=== PATIENT | female | born 1960 | race Caucasian/White ===

== ENCOUNTER 2017-05-05 08:33 | Day surgery (SDC) | payer OTHER ==
[~2017-05-05] VITALS: Ht 160 cm; Wt 87.1 kg
[~2017-05-05 08:33] MED LIST: ATENOLOL50 MG PO; CLONAZEPAM0.5 MG PO; HYDROCHLOROTHIA50 MG PO; MELATONIN5 M2 PO; PROBIOTIC & AC1 EACH PO; TRAZODONE HCL50 MG PO; VITAMIN D400 UNI2 PO; WELLBUTRIN SR150 MG PO
[2017-05-05] MEDS ORDERED: CRANBERRY500 M3 PO (08:50)
[2017-05-05] MEDS ORDERED: DAILY MULTIPLE1 EACH PO (08:52)
--- NOTE | 2017-05-05 09:50 | NUR ---
05/05/17 0950 Margaret Sam 0994-PATIENT ARRIVED TO PACU ON 3L NC O2 SAT 98% PATIENT AWAKE DENIES PAIN OR NAUSEA. DROWSY ABDOMEN ROUND AND SOFT. RR EVEN
--- NOTE | 2017-05-06 08:21 | OR ---
[facility] [address], [place] [address] Signed DATE OF OPERATION: 05/05/2017 SURGEON: Anabel Pena MD COLONOSCOPY REPORT PREOPERATIVE DIAGNOSES: 1. Father with history of colon cancer at age 58. 2. Change in bowel habits with increased urgency and frequency associated with some constipation, nausea, abdominal pain, and diarrhea. POSTOPERATIVE DIAGNOSES: 1. Eawdejc-em-xvjajnjq sigmoid diverticulosis. 2. Thrombosed right external hemorrhoid. 3. Jicbyxq-ws-gpxygoiv internal hemorrhoids. PROCEDURE: Colonoscopy without biopsy. ESTIMATED BLOOD LOSS: None. INDICATIONS: Anai is a 56-year-old female, who was asked to see me for a colonoscopy. She has been through a very rough year with her brother being diagnosed with pancreatic cancer at age 59. Also her father was diagnosed with colon cancer at age 58. She has never had a previous colonoscopy. However, she had a change in bowel habits last fall with lots of mucus, increased urgency, frequency, alternating constipation, diarrhea, and abdominal pain. She thinks it is getting a little better as year goes on. She was asked by her primary care provider to come and see me for a colonoscopy. She told me today that her has been through a colonoscopy with myself and so they are familiar with the process. In the office, I gave her a pamphlet on colonoscopy and we looked at that together along with the risks including, but not limited to gas bloating, crampy abdominal pain, bleeding, perforation, requiring surgery, and missed diagnosis. We also reviewed the written instructions for the bowel prep. We also had her take her usual dose of her clonazepam in the evening. She had expressed understanding and wished to proceed. PROCEDURE NOTE: Anai was taken into our endoscopy suite and placed in the left lateral decubitus Electronically Signed By: ANABEL PENA MD 05/06/17 0821 PATIENT NAME: ANAI VILLAFANA OPERATIVE REPORT DATE OF : 58 REPORT #: [id number] PHYSICIAN: ANABEL PENA MD PCP: SHAUNNA OSHEA REPORT IS CONFIDENTIAL AND NOT TO BE RELEASED WITHOUT AUTHORIZATION [facility] [address], [place] [address] Signed position. She was given divided doses of 6 mg of Versed and 150 mcg of fentanyl. A digital rectal exam was performed and she has a routine thrombosed external hemorrhoid in the right lateral position. Sphincter tone was fine. The adult colonoscope was then introduced and advanced all around into the cecum under direct visualization of camera. Her prep was good. The scope was then slowly withdrawn. We could easily see the appendiceal orifice, the [place] foot, and the ileocecal valve. We saw no pathology in the colon except for diverticula in the sigmoid colon. They were minimal to moderate in number, moderate in size and scattered about. Once in the rectum, the scope had been retroflexed and she did have just a little bit of internal hemorrhoid tissue as well. After this, the gas was suctioned out and the colonoscope removed. Anai tolerated the procedure quite well. RECOMMENDATIONS: Anai can return in 5 years for repeat colonoscopy. If she wants to have the thrombosed hemorrhoid excised, I am happy to help her in the office as well. Anabel Pena MD ALB/MODL /[id number] cc: MD Shaunna Tobar FNP Copies: ANABEL PENA MD, LISA R FNP ~ Electronically Signed By: ANABEL PENA MD 05/06/17 0821 PATIENT NAME: ANAI VILLAFANA OPERATIVE REPORT DATE OF : 58 REPORT #: [id number] PHYSICIAN: ANABEL PENA MD PCP: SHAUNNA OSHEA REPORT IS CONFIDENTIAL AND NOT TO BE RELEASED WITHOUT AUTHORIZATION
== END 2017-05-05 10:45 | disposition home or self-care (01) ==
LOC: OPS 08:33 → DS 08:33 → OPS 10:45
PROVIDERS: Colon & Rectal Surgery
PROC: 0DJD8ZZ Inspection of Lower Intestinal Tract, Via Natural or Artificial Opening Endoscopic (ICD-10-PCS; principal; 2017-05-05 08:15)
DX: K64.5 Perianal venous thrombosis (principal); K64.8 Other hemorrhoids; K57.30 Diverticulosis of large intestine without perforation or abscess without bleeding; K59.00 Constipation, unspecified; G47.00 Insomnia, unspecified; I10 Essential (primary) hypertension; F32.9 Major depressive disorder, single episode, unspecified; F41.9 Anxiety disorder, unspecified; Z80.0 Family history of malignant neoplasm of digestive organs; Z98.890 Other specified postprocedural states; Z79.899 Other long term (current) drug therapy
CPT/HCPCS: 99153; G0500; J2250; J3010; J7120

== ENCOUNTER 2024-01-16 13:29 | Emergency (ER) | payer OTHER ==
[~2024-01-16] VITALS: Ht 160 cm; Wt 102.5 kg
[~2024-01-16 13:29] MED LIST changes: +CRANBERRY500 M3 PO; +DAILY MULTIPLE1 EACH PO
[2024-01-16] MEDS ORDERED: TIAZAC120 MG PO ×2 (13:42)
[2024-01-16 13:44] LABS: BASOPHILS 0.8 % (0-2); HEMATOCRIT 43.3 % (35.0-50.0); HEMOGLOBIN 14.4 g/dL (12.0-18.0); LYMPHOCYTES 27.4 % (24-44); MCH 27.7 (27-36); MCHC 33.4 g/dl (30-36); MCV 82.9 fl (81-99); NEUTROPHILS 58.8 % (39-80); PLATELET COUNT 329 K/uL (140-440); RBC 5.22 M/ul (4.3-5.7); RDW 14.4 (10.5-15.0)
[2024-01-16] MEDS ORDERED: ASPIRIN 81 MG CHEW PO ONE (13:45)
[2024-01-16] MEDS ORDERED: HYZAAR 100-12.1 EACH PO (13:48)
[2024-01-16 14:04] LABS: ALBUMIN 3.8 g/dL (3.4-5.0); ALBUMIN/GLOBULIN RATIO 0.93 (1.1-2.4); ANION GAP 14.7 (7-21); BILIRUBIN, TOTAL 0.3 ng/dL (0.2-1.0); BUN/CREATININE RATIO 17.07 (6.0-28.6); CALCIUM 9.5 mg/dL (8.5-10.1); CREATININE, SERUM 0.82 mg/dL (0.55-1.02); POTASSIUM 3.7 mmol/L (3.5-5.1); PROTEIN, TOTAL 7.9 g/dL (6.4-8.2)
[2024-01-16 15:43] VITALS: BP 137/70
--- NOTE | 2024-01-17 22:53 | EKG ---
[facility] [address] [facility] [place] [address] Signed Normal sinus rhythm Minimal voltage criteria for LVH, may be normal variant ( R in aVL ) Borderline ECG No previous ECGs available Confirmed by Rema Lindsey MD () on 01/17/2024 10:53:41 PM Electronically Signed By: REMA LINDSEY MD 01/17/24 2253 PATIENT NAME: POOL VILLAFANA Electrocardiogram DATE OF : 58 PHYSICIAN: REMA LINDSEY MD REPORT #: [id number] REPORT IS CONFIDENTIAL AND NOT TO BE RELEASED WITHOUT AUTHORIZATION
== END 2024-01-16 15:45 | disposition home or self-care (01) ==
LOC: ED 13:29
PROVIDERS: Emergency Medicine
DX: R07.89 Other chest pain (principal); I10 Essential (primary) hypertension; Z91.09 Other allergy status, other than to drugs and biological substances; Z88.5 Allergy status to narcotic agent; Z88.8 Allergy status to other drugs, medicaments and biological substances; Z79.899 Other long term (current) drug therapy
CPT/HCPCS: 36415; 71045; 80053; 83690; 83735; 84484; 85025; 85379; 93005; 93010; 99285-25; A9270